=== PATIENT | male | born 1945 | race Caucasian/White ===

== ENCOUNTER 2018-10-22 08:49 | Emergency (ER) | payer OTHER ==
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
[2018-10-22] MEDS ORDERED: IOPAMIDOL (ISOVUE-300) 100 ML BTL ONE (10:09)
[2018-10-22] MEDS ORDERED: LIDOCAINE 4%/MENTHOL 1% PATCH TD ONE (10:54)
[2018-10-22 11:38] VITALS: BP 122/79
--- NOTE | 2018-10-22 15:02 | CPEKG ---
Test Reason : OPEN Blood Pressure : / mmHG Vent. Rate : 048 BPM Atrial Rate : 047 BPM P-R Int : 195 ms QRS Dur : 127 ms QT Int : 474 ms P-R-T Axes : 042 007 -10 degrees QTc Int : 424 ms Sinus bradycardia Right bundle branch block Confirmed by Anirudh Oliva ([id number]) on 10/22/2018 3:02:08 PM Referred By: ANIRUDH OLIVA Confirmed By:Anirudh Oliva
[2018-10-22] MEDS ORDERED: PATCH REMOVAL 1 EA PATCH TD SCH (21:00)
== END 2018-10-22 11:36 | disposition home or self-care (01) ==
DX: R07.89 Other chest pain (principal); M25.521 Pain in right elbow; R00.1 Bradycardia, unspecified; I45.10 Unspecified right bundle-branch block; V19.88XA Pedal cyclist (driver) (passenger) injured in other specified transport accidents, initial encounter; Y93.55 Activity, bike riding
CPT/HCPCS: 71260; 73080; 93005; 99285; Q9967; 82435-PO; 82565-PO; 82947-PO; 84132-PO; 84295-PO; 84520-PO; 85014-ER